=== PATIENT | female | born 1945 | race Caucasian/White ===

== ENCOUNTER 2018-01-07 20:46 | Emergency (ER) | payer MEDICARE, OTHER ==
[2018-01-07] MEDS ORDERED: TRAMADOL HCL 50 MG TABLET PO ONE (22:15)
--- NOTE | 2018-01-07 22:21 | ER Document Report ---
ED Extremity Problem, Lower - General Chief Complaint: Knee Injury Stated Complaint: FALL/LEFT KNEE INJURY Information source: Patient TRAVEL OUTSIDE OF THE [place] IN LAST 30 DAYS: No - HPI Notes: 68-year-old female with history of bilateral knee replacement presents with left knee and head injury after falling. She was walking down steps missed the very last step falling forward on her left knee and also striking her right forehead. She is on low-dose aspirin daily but no other anticoagulants. There was no loss of consciousness or other concussive type symptoms. Denies vomiting. No significant dizziness. She has right frontal pain where the injury was at. They applied ice and the hematoma seems to be improving. She denies neck or back pain at all. She has more significant left knee pain then head pain. States she is unable to bear weight on her left knee. The pain is in the front of her knee. No distal numbness or tingling. She borrowed a family members leg brace and has put ice on it as well. Denies hip pain or other injury otherwise. Past Medical History - Social History Smoking Status: Current Every Day Smoker Family History: Other Review of Systems - Review of Systems -: Yes All other systems reviewed and negative Physical Exam - Vital signs Vitals: Temp Pulse Resp BP Pulse Ox 98.7 F 90 24 H 151/77 H 96 01/07/18 21:50 01/07/18 21:50 01/07/18 21:50 01/07/18 21:50 01/07/18 21:50 Interpretation: Hypertensive - Notes Notes: GENERAL: VS as per nursing doc. Well-appearing, well-nourished and in no acute distress. HEAD: Atraumatic, normocephalic. EYES: Pupils equal round and reactive to light, extraocular movements intact, sclera anicteric, no conjunctival injection or discharge. ENT: Nares patent, oropharynx clear without exudates, moist mucous membranes. Patient has a right forehead hematoma with bruising extending to the right eyebrow. No deformity noted. No orbital wall tenderness. NECK: Normal range of motion, supple without pain elicited. There is no tenderness to palpation. LUNGS: Breath sounds coarse bilaterally and equal. No wheezes rales or rhonchi. HEART: Regular rate and rhythm without murmurs. ABDOMEN: Soft, non-tender BACK: No CVA tenderness. No back tenderness or spine tenderness EXTREMITIES: There is prepatellar bruising noted. Extensor mechanism appears to be intact the patient is unable to significantly lift her heel off the bed. Decreased range of motion secondary to pain. No significant lateral tenderness over the joint line. No popliteal tenderness. No crepitance. NEUROLOGICAL: Normal distal strength and sensation. No gross neurologic abnormalities. Normal strength and sensation PSYCH: Normal mood, normal affect. SKIN: Warm, dry, bruising is noted, no laceration Course - Re-evaluation Re-evalutation: 01/08/18 00:[address] 01/07/18 22:15 IMPRESSION: 1. No acute intracranial abnormality by CT criteria. This exam was performed according to our departmental dose-optimization program, which includes automated exposure control, adjustment of the mA and/or kV according to patient size and/or use of iterative reconstruction technique. Knee X-Ray 01/07/18 22:16 IMPRESSION: Postsurgical changes from total knee arthroplasty with a small joint effusion with no acute bony abnormality. Patient is feeling better after the tramadol. I discussed findings with her and feel most likely she has a knee contusion. She has now starting to use her extensor mechanism though it is still painful. She has a walker at home she will use. We will place her in a knee immobilizer. She will follow-up with her primary care physician for routine follow-up unless it seems to be worsening at which point she will follow-up with orthopedics. Her prior orthopedist is no longer here. - Vital Signs Vital signs: Temp Pulse Resp BP Pulse Ox 98.7 F 90 24 H 151/77 H 96 01/07/18 21:50 01/07/18 21:50 01/07/18 21:50 01/07/18 21:50 01/07/18 21:50 - Diagnostic Test Radiology reviewed: Image reviewed Discharge - Discharge Clinical Impression: Contusion of knee, Left knee pain, Closed head injury Condition: Good Disposition: HOME, SELF-CARE Instructions: Ice & Elevation ([facility]), Knee Immobilizing Splint ([facility]) Additional Instructions: Ice and elevate as discussed. Use your walker to keep pressure off it. Return for any problem or concern. Follow-up with your primary care physician or if worsening the orthopedist as listed. Use caution with the pain medication as it can cause sedation and unsteadiness. Prescriptions: Tramadol HCl 50 - 100 mg PO Q6H PRN #14 tablet PRN Reason: Referrals: LEVAR MON MD [ACTIVE STAFF] - Follow up as needed
--- NOTE | 2018-01-07 23:07 | RADIOLOGY REPORT (SQ) ---
Left knee two view on 01/07/2018 at 10:43 PM CLINICAL INDICATION: Trauma, knee pain COMPARISON: None FINDINGS: The patient is status post a total knee arthroplasty. Vascular calcifications are noted. There are no fractures. There is small suprapatellar joint effusion. No definite hardware complication is noted. IMPRESSION: Postsurgical changes from total knee arthroplasty with a small joint effusion with no acute bony abnormality.
--- NOTE | 2018-01-07 23:13 | RADIOLOGY REPORT (SQ) ---
EXAM DESCRIPTION: CT HEAD WITHOUT IV CONTRAST COMPLETED DATE/TME: 01/07/2018 22:15 CLINICAL HISTORY: Trauma with pain COMPARISON: None available TECHNIQUE: Axial CT of the head obtained from the skull apex to the skull base without contrast. FINDINGS: No acute intracranial hemorrhage identified. No mass, mass effect, shift of the midline, abnormal extra-axial fluid collection or CT evidence of acute ischemic change identified. The ventricular system and sulcal spaces are mildly enlarged compatible with mild cerebral atrophy. Scattered areas of hypodensity throughout the supratentorial white matter are nonspecific and may be related to chronic small vessel ischemic change. The visualized paranasal sinuses and the mastoids are clear. Contusion in the right scalp subcutaneous soft tissues. No skull fracture identified. Visualized orbits and globes are unremarkable. Atherosclerotic calcification of the intracranial internal carotid arteries. DLP: 937.36 mGy-cm IMPRESSION: 1. No acute intracranial abnormality by CT criteria. This exam was performed according to our departmental dose-optimization program, which includes automated exposure control, adjustment of the mA and/or kV according to patient size and/or use of iterative reconstruction technique.
[2018-01-08 01:01] VITALS: BP 164/65
== END 2018-01-08 01:02 | disposition home or self-care (01) ==
LOC: ER 20:46
DX: S09.90XA Unspecified injury of head, initial encounter (principal); S80.02XA Contusion of left knee, initial encounter; W10.9XXA Fall (on) (from) unspecified stairs and steps, initial encounter; F17.200 Nicotine dependence, unspecified, uncomplicated
CPT/HCPCS: 99284; 73560; 70450; L1830; A9270